=== PATIENT | female | born 1955 | race Two or more races ===

== ENCOUNTER 2024-12-25 14:17 | Inpatient (IN) | payer OTHER ==
[~2024-12-25] VITALS: Ht 149.9 cm; Wt 84.0 kg
--- NOTE | 2024-12-25 14:46 | ED.PDOC ---
HPI Comments 69 y/o F, with PMHx of anemia and HTN, brought in by daughter presents to the ED for CC of hypotension. Per patient's daughter, patient has been experiencing low blood pressure readings with associated symptoms of disorientation, confusion x2days. Patient relays, that she drove up to her daughter's place from [place] today (12/25/24) however, she is unable to recall the drive. Patient comments on, having had heart problems for over a year; patient has appointment with disease control inspector on Monday (12/31/24). Patient denies fever, chills, nausea, vomiting, or diarrhea. No other symptoms or modifying factors present at this time. Time Seen by MD: 14:38 Reviewed Notes: Nurses Notes, Medications, Allergies Allergies: Coded Allergies: Cefaclor (Verified Allergy, Unknown, 12/25/24) Information Source: Patient, Relative (Child) Mode of Arrival: Ambulatory Severity: Moderate Timing: Days Duration: Since onset Prehospital treatment: None Onset: At Rest Cardiac Risk Factors: HTN PE Risk Factors: None History of: None Modifying Factors: Nothing Associated Signs and Symptoms: SOB Past Medical History PAST MEDICAL HISTORY: Anemia, HTN Surgical History: Denies all surgeries QUICK TECHNICIAN History: Denies all QUICK TECHNICIAN Hx Family History Family History: Unknown Social History Smoker: Non-Smoker Alcohol: Occasionally Drugs: Denies Drug Use Lives In: Home Constitutional: denies: chills, diaphoresis, fatigue, fever, malaise, sweats, weakness, others EENTM: denies: blurred vision, double vision, ear bleeding, ear discharge, ear drainage, ear pain, ear ringing, eye pain, eye redness, hearing loss, mouth pain, mouth swelling, nasal discharge, nose bleeding, nose congestion, nose pain, photophobia, tearing, throat pain, throat swelling, voice changes, others Respiratory: denies: cough, hemoptysis, orthopnea, SOB at rest, shortness of breath, SOB with excertion, stridor, wheezing, others Cardiovascular: reports: others (HYPOTENSION); denies: chest pain, dizzy spells, diaphoresis, Dyspnea on exertion, edema, irregular heart beat, left arm pain, lightheadedness, palpitations, PND, syncope Gastrointestinal: denies: abdomen distended, abdominal pain, blood streaked bowels, constipated, diarrhea, dysphagia, difficulty swallowing, hematemesis, melena, nausea, poor appetite, poor fluid intake, rectal bleeding, rectal pain, vomiting, others Genitourinary: reports: incontinence; denies: abnormal vagina bleeding, burning, dyspareunia, dysuria, flank pain, frequency, hematuria, pain, , vagina discharge, urgency, others Neurological: reports: others (CONFUSION); denies: dizziness, fainting, headache, left sided numbness, left sided weakness, numbness, paresthesia, pre-e xisting deficit, right sided numbness, right sided weakness, seizure, speech problems, tingling, tremors, weakness Musculoskeletal: denies: back pain, gout, joint pain, joint swelling, muscle pain, muscle stiffness, neck pain, others Integumetry: denies: bruises, change in color, change in hair/nails, dryness, laceration, lesions, lumps, rash, wounds, others Allergic/Immunocompromised: denies: Difficulty Healing, Frequent Infections, Hives, Itching, others Hematologic/Lymphatic: denies: anemia, blood clots, easy bleeding, easy bruising, swollen glands, others Endocrine: denies: excessive hunger, excessive sweating, excessive thirst, excessive urination, flushing, intolerance to cold, intolerance to heat, unexplained weight gain, unexplained weight loss, others Psychiatric: denies: anxiety, bipolar disorder, depression, hopeless, panic disorder, schizophrenia, sleepless, suicidal, others All Other Systems: Reviewed and Negative Physical Exam General Appearance: Moderate Distress HEENT: Pale Conjuntivae (L), Pale Conjuntivae (R), Pharynx Normal, TMs Normal Neck: Full Range of Motion, Non-Tender, Normal, Normal Inspection Respiratory: Chest Non-Tender, Lungs Clear, No Accessory Muscle Use, No Respiratory Distress, Normal Breath Sounds Cardiovascular: No Edema, No JVD, No Murmur, No Gallop, Normal Peripheral Pulses, Regular Rate/Rhythm Breast Exam: Deferred Gastrointestinal: No Organomegaly, Non Tender, No Pulsatile Mass, Normal Bowel Sounds, Soft Genitalia: Deferred Pelvic: Deferred Rectal: Deferred Extremities: No calf tenderness, Normal capillary refill, Normal inspection, Normal range of motion, Non-tender, No pedal edema Musculoskeletal : Apperance: Normal Neurologic: licensed audiologist II-XII nml as Tested, Motor Weakness, No Sensory Deficits, Other (The patient was somewhat confused) Cerebellar Function: Unable to Test Reflexes: Normal Skin: Dry, Normal Color, Warm Lymphatic: No Adenopathy EKG EKG : [place]: Normal Cardiac Rhythm: NSR Block: None Hypertrophy: LAE ST: Normal Was a procedure done? Was a procedure done?: No CP Differential Dx Differential Diagnosis: Angina, HI, Pulmonary Embolus Differential Diagnosis: CHF, Other (CVA) Differential Diagnosis: Pericarditis X-Ray, Labs, Meds, VS Vital Signs Date Time Temp Pulse Resp B/P (MAP) Pulse Ox O2 Delivery O2 Flow Rate FiO2 12/25/24 18:13 98.2 86 18 128/48 (74) 96 98.2 12/25/24 14:48 97.9 85 18 100/61 (74) 95 97.9 12/25/24 14:38 80 Lab Test 12/25/24 14:55 12/25/24 14:34 Range/Units White Blood Count 7.9 4.4-10.8 10^3/uL Red Blood Count 4.31 4.0-5.20 10^6/uL Hemoglobin 13.8 12.2-16.2 g/dL Hematocrit 42.0 36.0-46.0 % Mean Corpuscular Volume 97.5 80.0-100.0 fL Mean Corpuscular Hemoglobin 32.0 28.0-32.0 pg Mean Corpuscular Hemoglobin Concent 32.8 32.0-36.0 g/dL Red Cell Distribution Width 13.4 11.8-14.3 % Platelet Count 314 140-450 10^3/uL Mean Platelet Volume 7.6 6.9-10.8 fL Neutrophils (%) (Auto) 50.3 37.0-80.0 % Lymphocytes (%) (Auto) 35.0 10.0-50.0 % Monocytes (%) (Auto) 5.5 0.0-12.0 % Eosinophils (%) (Auto) 8.6 H 0.0-7.0 % Basophils (%) (Auto) 0.6 0.0-2.0 % Neutrophils # (Auto) 4.0 1.6-8.6 10 ^3/uL Lymphocytes # (Auto) 2.8 0.4-5.4 10 ^3/uL Monocytes # (Auto) 0.4 0-1.3 10 ^3/uL Eosinophils # (Auto) 0.7 0-0.8 10 ^3/uL Basophils # (Auto) 0 0-0.2 10 ^3/uL Nucleated Red Blood Cells 0.0 % Sodium Level 138 136-145 mmol/L Potassium Level 4.3 3.5-5.1 mmol/L Chloride Level 106 98-107 mmol/L Carbon Dioxide Level 23 20-31 mmol/L Anion Gap 9 5-15 Blood Urea Nitrogen 10 9-23 mg/dL Creatinine 0.70 0.550-1.02 mg/dL Glomerular Filtration Rate Calc 95 >90 mL/min BUN/Creatinine Ratio 14.3 10.0-20.0 Serum Glucose 96 74-106 mg/dL Lactic Acid Level 1.3 0.4-2.0 mmol/L Calcium Level 9.1 8.7-10.4 mg/dL Troponin I High Sensitivity < 3 L </=34 ng/L Plasma/Serum Blood Alcohol < 3.0 <10 mg/dL POC Glucose 88 70-106 mg/dl CXR: IMPRESSION: 1. Atelectasis or scarring in the left base no prior studies for comparison. The patient's CBC and chemistry panel is within normal limits The troponin level is negative The alcohol level is within normal limits. The CAT scan of the head is negative At this time, the patient was being admitted to the hospitalist The patient remained somewhat confused Images Reviewed?: Images reviewed and evaluated by me Time of 1ST Reevaluation: 15:08 Reevaluation 1ST: Unchanged Patient Education/Counseling: Diagnosis, Treatment, Prognosis Family Education/Counseling: Diagnosis, Treatment, Prognosis Departure 1 Departure Time of Disposition: 18:31 Impression: Primary Impression: Confusion Disposition: 09 ADMITTED INPATIENT Admit to: [facility] Condition: Fair Critical Care Note Critical Care Time?: Yes (45 min-critical care time only) Stability Stability form required: Yes Unstable for transfer: Telemetry monitoring (Telemetry monitoring required), ED Physician Assesment (Clinical assesment) Heart Score Heart Score: Heart Score Response (Comments) Value History N/A 0 EKG N/A 0 Age N/A 0 Risk Factors N/A 0 Troponin N/A 0 Total 0 I personally scribed for DIMITRI SCHWARTZ MD ([email or web address]) on 12/25/24 at 14:46. Electronically submitted by Florecita Araya ([email or web address]). I personally scribed for DIMITRI SCHWARTZ MD ([email or web address]) on 12/25/24 at 16:04. Electronically submitted by Florecita Araya ([email or web address]). DIMITRI SCHWARTZ MD Dec 25, 2024 14:46
[2024-12-25 15:10] LABS: Basophils # (auto) 0 10 ^3/uL (0-0.2); Basophils % (auto) 0.6 % (0.0-2.0); Eosinophils # (auto) 0.7 10 ^3/uL (0-0.8); Eosinophils % (auto) 8.6 % (0.0-7.0); Hemoglobin 13.8 g/dL (12.2-16.2); Lymphocytes # (auto) 2.8 10 ^3/uL (0.4-5.4); Mean Corpuscular Hgb Conc. 32.8 g/dL (32.0-36.0); Mean Corpuscular Volume 97.5 fL (80.0-100.0); Monocytes # (auto) 0.4 10 ^3/uL (0-1.3); Monocytes % (auto) 5.5 % (0.0-12.0); Neutrophils % (auto) 50.3 % (37.0-80.0); Platelet Count (auto) 314 10^3/uL (140-450); Red Blood Cells 4.31 10^6/uL (4.0-5.20); Red Cell Distribution Width 13.4 % (11.8-14.3); White Blood Cell 7.9 10^3/uL (4.4-10.8)
[2024-12-25 15:18] LABS: Chloride 106 mmol/L (98-107); Potassium 4.3 mmol/L (3.5-5.1); Sodium 138 mmol/L (136-145)
[2024-12-25 15:19] LABS: Anion Gap 9 (5-15); Carbon Dioxide 23 mmol/L (20-31)
[2024-12-25 15:20] LABS: Calcium 9.1 mg/dL (8.7-10.4)
[2024-12-25 15:24] LABS: Glucose 96 mg/dL (74-106)
[2024-12-25 15:25] LABS: BUN/Creatinine Ratio 14.3 (10.0-20.0); Blood Urea Nitrogen 10 mg/dL (9-23)
[2024-12-25 15:28] LABS: Blood Alcohol < 3.0 mg/dL (<10)
--- NOTE | 2024-12-25 15:41 | DVH ---
XY CHEST TWO VIEWS ROUTINE CLINICAL HISTORY: aloc COMPARISON: None TECHNIQUE: Frontal and lateral view of the chest was obtained FINDINGS: Lines and Tubes: None Lungs: Atelectasis or scarring in the left base Pleura: No effusion. No pneumothorax. Cardiomediastinal contours: Unremarkable Bones: No acute osseous abnormality. IMPRESSION: 1. Atelectasis or scarring in the left base no prior studies for comparison.
--- NOTE | 2024-12-25 16:48 | DVH ---
EXAM: CT HEAD WITHOUT CONTRAST; DATE: 12/25/2024 02:51 PM HISTORY: aloc COMPARISON: None TECHNIQUE: Axial images were obtained and reformatted in coronal and sagittal planes. All CT scans at this medical facility are performed using dose modulation techniques as appropriate t o a performed exam including the following: Automated exposure control was utilized; adjustment of th e MA and/or KV according to patient size; and use of iterative reconstruction technique. CT Dose: CTDI volume is 56.14 mGy. Dose-length product is 994.11 mGy*cm FINDINGS: Supratentorial Region: No evidence for large acute territorial ischemia. No intracranial hemorrhage is noted. Posterior Fossa: No acute abnormality. Brainstem: Unremarkable. Sellar/Suprasellar Region: Unremarkable. Ventricles, Cisterns, Sulci: Age-appropriate. Orbits: Unremarkable. Paranasal Sinuses: Unremarkable. Mastoid Air Cells: Unremarkable. Vasculature: Unremarkable. Bones/Soft Tissues: No acute abnormality. Other: None. IMPRESSION: 1. No acute intracranial process.
[2024-12-25] MEDS: SODIUM CHLORIDE 0.9% 1,000 ML IV ONE (18:41)
[2024-12-25] MEDS ORDERED: DOCUSATE SOD 100 MG CAP PO PRN (23:15)
[2024-12-25] MEDS ORDERED: ONDANSETRON HCL 4 MG/2 ML VIAL IV PRN (23:15)
[2024-12-25] MEDS ORDERED: ACETAMINOPHEN 325 MG TAB PO PRN (23:15)
[2024-12-25] MEDS ORDERED: MORPHINE SULFATE INJ 2 MG/ml SYRG IV PRN (23:15)
--- NOTE | 2024-12-25 23:19 | DVHHPRES ---
History of Present Illness Resident Creating Document: WINNIE KWOK RESIDENT History of Present Illness Trena Sanchez who is a 69-year-old female patient who presents to the ED brought by daughter due to episode of dementia, lightheadedness, right side facial drooping and slurred speech which occurred while driving from her house to the daughter's house. Review of systems could not be obtained during episode due to her clinical status (she had amnesia). Past medical history: Prediabetes, history of congestive heart failure (per patient she has left ventricular ejection fraction of 28%) due to non affiliated arrhythmia she was planning to go to her natural resource officer and [facility] (pending for this week). Previous history of diverticulitis Surgical history: Denies Family history: Father had heart disease, grandmother had colon cancer, and mother had fallopian tube cancer Social history: Lives in [place] ([place]), was visiting daughter in [place]. Denies current tobacco, alcohol and other drug abuse (she does drink one glass of wine/Sabi everyday (never more than two. Does consume CBD to go to sleep Allergies: Hay fever Home medication: Spiriva, Breyo, lisinopril Patient seen and examined at bedside. Currently has no new complaints. We will admit to workup and rule out CVA. Past Medical History Per HPI Past Surgical History Per HPI Family History Per HPI Past Social History Per HPI Review of Systems Review of Systems Per HPI Allergies: Coded Allergies: Cefaclor (Verified Allergy, Unknown, 12/25/24) Exam Vital Signs Vital Signs Date Time Temp Pulse Resp B/P (MAP) Pulse Ox O2 Delivery O2 Flow Rate FiO2 12/25/24 19:44 70 18 95 Room Air 12/25/24 19:44 97.9 126/79 (95) 97.9 Exam Patient lying in bed, in no acute distress General: Lucid, afebrile, mucosae are moist Cardiovascular: Normal S1 and S2. No murmurs, gallops or rubs Respiratory: Normal ventilation mechanics. Clear lung sounds on auscultation Abdomen: Soft, nontender, no organomegaly, normal bowel sounds MSK/skin: Mobilizes 4 limbs. Skin is dry and warm Neurological: Oriented in 3 spheres. No motor no sensitive deficits. Pupils are isocoric and reactive Labs/Xrays Labs Test 12/25/24 14:55 12/25/24 14:34 Range/Units White Blood Count 7.9 4.4-10.8 10^3/uL Red Blood Count 4.31 4.0-5.20 10^6/uL Hemoglobin 13.8 12.2-16.2 g/dL Hematocrit 42.0 36.0-46.0 % Mean Corpuscular Volume 97.5 80.0-100.0 fL Mean Corpuscular Hemoglobin 32.0 28.0-32.0 pg Mean Corpuscular Hemoglobin Concent 32.8 32.0-36.0 g/dL Red Cell Distribution Width 13.4 11.8-14.3 % Platelet Count 314 140-450 10^3/uL Mean Platelet Volume 7.6 6.9-10.8 fL Neutrophils (%) (Auto) 50.3 37.0-80.0 % Lymphocytes (%) (Auto) 35.0 10.0-50.0 % Monocytes (%) (Auto) 5.5 0.0-12.0 % Eosinophils (%) (Auto) 8.6 H 0.0-7.0 % Basophils (%) (Auto) 0.6 0.0-2.0 % Neutrophils # (Auto) 4.0 1.6-8.6 10 ^3/uL Lymphocytes # (Auto) 2.8 0.4-5.4 10 ^3/uL Monocytes # (Auto) 0.4 0-1.3 10 ^3/uL Eosinophils # (Auto) 0.7 0-0.8 10 ^3/uL Basophils # (Auto) 0 0-0.2 10 ^3/uL Nucleated Red Blood Cells 0.0 % Sodium Level 138 136-145 mmol/L Potassium Level 4.3 3.5-5.1 mmol/L Chloride Level 106 98-107 mmol/L Carbon Dioxide Level 23 20-31 mmol/L Anion Gap 9 5-15 Blood Urea Nitrogen 10 9-23 mg/dL Creatinine 0.70 0.550-1.02 mg/dL Glomerular Filtration Rate Calc 95 >90 mL/min BUN/Creatinine Ratio 14.3 10.0-20.0 Serum Glucose 96 74-106 mg/dL Lactic Acid Level 1.3 0.4-2.0 mmol/L Calcium Level 9.1 8.7-10.4 mg/dL Troponin I High Sensitivity < 3 L </=34 ng/L Plasma/Serum Blood Alcohol < 3.0 <10 mg/dL POC Glucose 88 70-106 mg/dl Assessment/Plan Assessment/Plan Assessment: Rule out CVA History of congestive heart failure not exacerbated (per patient LVEF is 28%) Non-Affiliated arrhythmia Asthma Plan: Completed head CT which showed no acute intracranial pathology. Have ordered MRI to rule out CVA Ordered Neurological consult Ordered workup for CVA (echocardiogram, carotid duplex) EKG shows normal sinus rhythm with regular progression of precordial R's, no significant ST alteration Goals of care discussed with patient for over18 minutes: Full code status Discussed plan with Dr. Portillo, patient and nurses: Patient was admitted to telemetry, she has history of non affiliated arrhythmia with no blood thinners (EKG showed normal sinus rhythm), awaiting CVA workup, head CT is within normal limits, pending MRI and Neurology consult. Plan discussed with: Patient, Other (Nurses) My Orders Orders - WINNIE KWOK Procedure Category Date Status Time Brain Head Wo Contrast MRI 12/25/24 Logged 23:15 Admit ADMIT 12/25/24 Verified 23:15 Code Status CODE 12/25/24 Verified 23:15 Vital Signs LESLY 12/25/24 Verified 23:15 Review Orders With LESLY 12/25/24 Verified Adm. 23:15 Consistent DIET 12/26/24 Verified Carb(Ccho)Diabetes Breakfast Docusate Sodium PHA 12/25/24 Verified Capsule (Colace 23:15 Date of Service: Dec 25, 2024 Billing Provider: CHER PORTILLO MD Common Visit Codes: 90249-XISACVN INP/OBS CARE (HIGH) Secondary Visit Codes: 20357-IAGTJGXR CARE PLAN 30 MINUTES WINNIE KWOK Dec 25, 2024 23:18 CHER PORTILLO MD Dec 26, 2024 19:02
[2024-12-25 23:48] LABS: Magnesium 2.2 mg/dL (1.6-2.6)
[2024-12-25 23:50] LABS: Phosphorus 3.7 mg/dL (2.4-5.1)
[2024-12-26] VITALS (14 sets, daily range): BP systolic 101–140; BP diastolic 52–88; PULSE 71–86; RESP 17–20; TEMP 97.3–97.6; O2SAT 91–100
[2024-12-26] MEDS: PANTOPRAZOLE 40 MG TAB PO SCH (06:17)
[2024-12-26] MEDS: ATORVASTATIN 20 MG TAB PO ONE (06:18)
[2024-12-26] MEDS: IPRATROPIUM BROM 0.5 MG/2.5ML INH SOL NEB SCH (07:21)
[2024-12-26] MEDS: LEVALBUTEROL HCL 1.25 MG/3 ML NEB NEB SCH (07:21)
[2024-12-26 08:27] LABS: Amphetamine Screen, Urine Neg (NEGATIVE); Barbiturate Scree,Urine Neg (NEGATIVE); Benzodiazephine Screen, Urine Neg (NEGATIVE); Cannabinoid Screen, Urine Pos (NEGATIVE); Cocaine Screen, Urine Neg (NEGATIVE); Opiate Scree,Urine Neg (NEGATIVE); Phencyclidine Screen, Urine Neg (NEGATIVE)
[2024-12-26 08:47] LABS: Urine Bacteria FEW /hpf (None Seen); Urine Blood Negative /uL (Negative); Urine Clarity Turbid (Clear); Urine Color Colorless (Yellow); Urine Protein, UAD Negative (Negative); Urine Specific Gravity 1.008 (1.001-1.035); Urine Squamous Epithelial Cell FEW /hpf (<5); Urine Urobilinogen Normal (Negative); Urine WBC 90 /HPF (0-5); Urine pH 5.5 (5.0-9.0)
[2024-12-26 08:56] LABS: Basophils # (auto) 0.1 10 ^3/uL (0-0.2); Basophils % (auto) 0.7 % (0.0-2.0); Eosinophils # (auto) 0.6 10 ^3/uL (0-0.8); Eosinophils % (auto) 7.4 % (0.0-7.0); Hematocrit 45.1 % (36.0-46.0); Hemoglobin 14.6 g/dL (12.2-16.2); Lymphocytes # (auto) 2.6 10 ^3/uL (0.4-5.4); Lymphocytes % (auto) 31.2 % (10.0-50.0); Mean Corpuscular Hemoglobin 31.4 pg (28.0-32.0); Mean Corpuscular Hgb Conc. 32.3 g/dL (32.0-36.0); Mean Corpuscular Volume 97.4 fL (80.0-100.0); Monocytes # (auto) 0.4 10 ^3/uL (0-1.3); Neutrophils # (auto) 4.7 10 ^3/uL (1.6-8.6); Neutrophils % (auto) 55.7 % (37.0-80.0); Nucleated Red Blood Cells % 0.1 %; Platelet Count (auto) 313 10^3/uL (140-450); Red Blood Cells 4.64 10^6/uL (4.0-5.20); Red Cell Distribution Width 13.3 % (11.8-14.3); White Blood Cell 8.4 10^3/uL (4.4-10.8)
[2024-12-26 08:58] LABS: Chloride 106 mmol/L (98-107); Potassium 4.4 mmol/L (3.5-5.1); Sodium 140 mmol/L (136-145)
[2024-12-26 08:59] LABS: Anion Gap 7 (5-15); Calcium 9.9 mg/dL (8.7-10.4); Carbon Dioxide 27 mmol/L (20-31)
[2024-12-26 09:04] LABS: BUN/Creatinine Ratio 11.4 (10.0-20.0); Glucose 97 mg/dL (74-106)
[2024-12-26 09:34] LABS: Blood Urea Nitrogen 8 mg/dL (9-23)
--- NOTE | 2024-12-26 09:56 | DVH ---
Carotid Duplex Date: 12/26/2024 08:41 AM Clinical History: CVA work up Comparison: None Technique: Duplex Doppler evaluation of the extracranial carotid and vertebral arteries including col or Doppler and spectral/pulsed waveform analysis was performed. Findings: RIGHT SIDE: The peak systolic velocities are 66 cm/s in the distal CCA and 40 cm/s in the proximal ICA.The ICA/CC A ratio is 0.6. The external carotid artery is patent with peak systolic velocity of 34 cm/s proximally. There is appropriate antegrade flow in the right vertebral artery. LEFT SIDE: The peak systolic velocities are 54 cm/s in the distal CCA and 81cm/s in the proximal ICA. The ICA/ CCA ratio is 1.5. The external carotid artery is patent with peak systolic velocity of 34 cm/s proximally. There is appropriate antegrade flow in the left vertebral artery. IMPRESSION: No hemodynamically significant stenosis noted in the right carotid system. No hemodynamically significant stenosis noted in the left carotid system. Reference: Radiology 2003; 229:340-346
[2024-12-26] MEDS: ASPirin 81 mg TAB PO SCH (10:04)
[2024-12-26] MEDS: METOPROLOL SUCCINATE XL 50 MG TAB PO SCH (10:05)
[2024-12-26] MEDS: VENLAFAXINE HCL 37.5MG TABLET PO SCH (10:05)
[2024-12-26] MEDS: ENOXAPARIN SOD 40 MG/0.4 ML SYRINGE SC SCH (10:06)
--- NOTE | 2024-12-26 10:15 | ECG ---
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
[2024-12-26] MEDS: LISINOPRIL 5 MG TAB PO SCH (11:46)
[2024-12-26] MEDS: FUROSEMIDE 20 MG/2 ML VIAL IV ONE (11:47)
--- NOTE | 2024-12-26 13:33 | DVHSR ---
APPROVED REPORT EXAM: Two-dimensional and M-mode echocardiogram with Doppler and color Doppler. Blood Pressure: 140/69 mmHg INDICATION HFrEF, CVA workup RISK FACTORS Height: 50, Weight: 182 DIMENSIONS LVDd4.9 (3.8-5.7cm)LA (2D)4.3 (1.9-4.0cm)Aortic Root3.3 (2.0-3.7cm) LVDs3.6 (2.5-4.0cm)LA (MM) (1.9-4.0cm)Aortic Cusp Exc1.9 (1.5-2.0cm) EF (%) 50.0 (55-70%)Rt. Atrium3.8 (1.9-4.0cm)Asc. Aorta cm IVSd1.1 (0.7-1.1cm)RV (D) (1.8-2.4cm) PWd1.1 (0.7-1.1cm) Mitral Valve MitralMitral Stenosis E wave0.49m/sMV Mean GR.mmHg A wave0.85m/sMV Peak GR.mmHg E/A ratio0.62D MVAcm2 DECEL [id number] 1/2 [id number] IVRTmsDop MVA2.49cm2 Aortic Valve Aortic ValveAortic Stenosis V10.70m/Stephon Mean GR.4mmHg V21.24m/Stephon Peak GR.6mmHg LVOT Diameter2.2 (1.8-2.4cm)Doppler AVA2.14cm2 Pulmonic Valve V21.16m/s Tricuspid Valve TR Velocity2.14m/s [id number] Other Information Technically limited study due to body habitus. Conclusion lvef 60% by viusal estimate normal rv function no severe valve abnormaliteis noted left atrium enlarged
--- NOTE | 2024-12-26 15:55 | DVHPNRES ---
Progress Note Date Seen: Dec 26, 2024 Resident Creating Document: DEANGELO DEAL RESIDENT Has the PT tested + for MRSA If YES, has PT been informed?: No Medical Necessity Reason Pt with a Central, PICC or Fol: No Medical Necessity Reason History of Present Illness Trena Sanchez who is a 69-year-old female patient who presents to the ED brought by daughter due to episode of dementia, lightheadedness, right side facial drooping and slurred speech which occurred while driving from her house to the daughter's house. Review of systems could not be obtained during episode due to her clinical status (she had amnesia). Past medical history: Prediabetes, history of congestive heart failure (per patient she has left ventricular ejection fraction of 28%) due to non affiliated arrhythmia she was planning to go to her wool grader and [facility] (pending for this week). Previous history of diverticulitis Surgical history: Denies Family history: Father had heart disease, grandmother had colon cancer, and mother had fallopian tube cancer Social history: Lives in [place] ([place]), was visiting daughter in [place]. Denies current tobacco, alcohol and other drug abuse (she does drink one glass of wine/Sabi everyday (never more than two. Does consume CBD to go to sleep Allergies: Hay fever Home medication: Spiriva, Breyo, lisinopril PN: 12/26/2024 Patient is seen and evaluated today in [facility]. For H&P patient tells me that yesterday around 890 8:00 a.m. in the morning she had a right her daughter's house. Her daughter noticed the her mouth pills deviated to the right side with Aung eyelid and she just did not look well. Therefore her daughter recommended brought her to the ED for evaluation. Patient also mentioned the was driving she remembers she was in and out of diabetes she did not remember exactly some of the places if she had passed them or not but she eventually admitted to her daughter's house. Patient denied ever having this experienced before. She also mentioned she had an echocardiogram done some where she was told she has been 828% ejection fraction. Chest- ray: Atelectasis or scarring in the left base no prior studies for comparison. Carotid duplexa; No hemodynamically significant stenosis noted in the right carotid system. No hemodynamically significant stenosis noted in the left carotid system. Subjective Review of Systems Constitutional: Denies fever no chills no feeling of malaise HEENT: Denies headache, ear pain, ear discharges, conjunctivitis, nasal discharge throat pain Cardiovascular: Denies chest pain, palpitation, orthopnea, PND, or pedal edema Respiratory: Denies shortness of breath, cough cough, sputum production, hemoptysis, GI: Denies abdominal pain, nausea, vomiting, diarrhea, hematemesis, hematochezia, : Denies frequency, urgency, hematuria, Endocrine: Denies unintentional weight gain or weight loss, feeling of hot flashes, Rubens: Denies easy bruising, bleeding disorders, epistaxis Musculoskeletal: Denies joint pains, muscle aches Psych: No evidence of depression, eleni, suicidal ideation Objective vital signs Vital Sign Date Time Temp Pulse Resp B/P (MAP) Pulse Ox O2 Delivery O2 Flow Rate FiO2 12/26/24 13:10 97.3 82 17 113/56 (75) 93 97.3 12/26/24 10:00 Room Air 12/26/24 10:00 0 21 medications Current Medications Medications Dose Ordered Sig/Radha Route Start Time Stop Time Status Last Admin Dose Admin Docusate Sodium 100 mg BIDPRN PRN PO 12/25/24 23:15 Acetaminophen 650 mg Q6HP PRN PO 12/25/24 23:15 Ondansetron HCl 4 mg Q4HP PRN IV 12/25/24 23:15 Morphine Sulfate 2 mg Q4HPRN PRN IV 12/25/24 23:15 Enoxaparin Sodium 40 mg DAILY SC 12/26/24 10:00 12/26/24 10:06 40 MG Ipratropium [place] 0.5 mg Q6HWA [facility] 12/26/24 06:00 12/26/24 11:19 0.5 MG Levalbuterol HCl 0.625 mg Q6HR [facility] 12/26/24 06:00 12/26/24 11:19 0.625 MG Atorvastatin Calcium 20 mg HS PO 12/26/24 22:00 Venlafaxine HCl 37.5 mg DAILY PO 12/26/24 10:00 12/26/24 10:05 37.5 MG Montelukast Sodium 10 mg HS PO 12/26/24 22:00 Pantoprazole Sodium 40 mg DAILY@0600 PO 12/26/24 06:00 12/26/24 06:17 40 MG Lisinopril 10 mg BID PO 12/26/24 10:00 12/26/24 11:46 10 MG Metoprolol Succinate 12.5 mg DAILY PO 12/26/24 10:00 12/26/24 10:05 12.5 MG Aspirin 81 mg DAILY PO 12/26/24 10:00 12/26/24 10:04 81 MG Examination General Appearance: Alert, Oriented X3, Cooperative, No acute distress HEENT: Atraumatic, PERRLA, EOMI, Mucous membrane moist/pink Respiratory: Clear to auscultation, Normal air movement Cardiovascular: Regular rate, Normal S1, Normal S2, No murmurs, no chest wall tenderness Abdominal: NO distention, no tenderness, bowel sounds present, no scars noted Extremities: No clubbing, No cyanosis, No edema, Normal pulses, No tenderness/swelling Skin: No rashes, No breakdown, No significant lesion Neuro: Normal gait, Normal speech, Strength at 5/5 X4 ext, Normal tone, Sensation intact, Cranial nerves 3-12 NL, Reflexes 2+ Psych/Mental Status: Mental status NL, Mood NL MMSE Orientation: 11/13 ( [facility]) Resgistration: 01/13 Attention and calculation 01/13 recall : 01/13 language 01/13 Copy: 01/13 laboratory and microbiology Laboratory Tests 12/26/24 08:07 Test 12/26/24 08:07 Range/Units Serum Glucose 97 74-106 mg/dL Microbiology Date/Time Source Procedure Growth Status 12/25/24 14:54 Blood Blood Culture - Preliminary NO GROWTH AFTER 24 HOURS OF INCUBATION. Resulted Problem List/Assessment/Plan Problem List/Assessment/Plan Assessment: Likely TIA CT head: No acute intracranial process. Carotid duplex: No hemodynamically significant stenosis noted in the right carotid system.No hemodynamically significant stenosis noted in the left carotid system. ? Early Dementia --> Highly educated, RETIRED --> MMSE: > 25/30 ?? New onset Chf CHF according to patient ( Echo: 28.%) -->pending visit to [facility]man the wool grader -->Echo here reveals 60% --> Cardiology consult for evaluation for ischemic work up Non-Affiliated arrhythmia Asthma Asymptomatic pyuria Obesity grade II --> BMI: 36.8 Goal of care discussed more than 20 minutes: Full code Case and plan discussed with Dr. Abraham Plan discussed with: Patient My Orders My Orders Orders - DEANGELO DEAL Procedure Category Date Status Time * Cardiology Consult CONS 12/26/24 Transmitted 15:53 Date of Service: Dec 26, 2024 Billing Provider: BEL ABRAHAM MD Common Visit Codes: [id number] INP/OBS CARE(HIGH) DEANGELO DEAL Dec 26, 2024 15:55 BEL ABRAHAM MD Dec 27, 2024 22:09
--- NOTE | 2024-12-26 16:44 | DVHINCON2 ---
Date Seen: Dec 26, 2024 Referring Physician MD Fernando resident Reason for Consultation New onset CHF, ischemic workup History of Present Illness This is a 69-year-old female patient who presents to the emergency room with chief complaint of confusion, right-sided facial drooping, and slurred speech. The patient admits that she was having issues with remembering the drive to her daughter's house. The patient reports her daughter became concerned and wanted her to come to the emergency room to be evaluated for a possible stroke. Cardiology has been consulted at this time for patient's history of congestive heart failure. Initial twelve lead electrocardiogram reveals normal sinus rhythm without any significant ST segment changes. Initial troponin level was negative. The patient denies any cardiac symptoms at time of assessment. Significant past medical history includes congestive heart failure, hypertension, asthma, PTSD, and depression. The patient states that she was told that she has an EF as low as 28%. 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 Past Medical History Past medical history reviewed. No other significant than mentioned above. Past Surgical History Denies Family History: Patient reports no known family medical history. Family History Family history reviewed. Social History Patient is states that she drinks approximately two glasses of wine every night Admits to occasional CBD use Denies any tobacco use Allergies: Coded Allergies: Cefaclor (Verified Allergy, Unknown, 12/25/24) Home Meds Home medications reviewed. Current Medications Current Medications Medications (Trade) Dose Ordered Sig/Radha Route PRN Reason Start Time Stop Time Status Last Admin Docusate Sodium (Colace Capsule) 100 mg BIDPRN PRN PO FOR CONSTIPATION 12/25/24 23:15 Acetaminophen (Tylenol Tablet) 650 mg Q6HP PRN PO PAIN SCALE 1-3 OR TEMP>100.4 12/25/24 23:15 Ondansetron HCl (Zofran) 4 mg Q4HP PRN IV NAUSEA / VOMITING 12/25/24 23:15 Morphine Sulfate 2 mg Q4HPRN PRN IV SEVERE PAIN (7-10 PAIN SCALE) 12/25/24 23:15 Enoxaparin Sodium (Lovenox) 40 mg DAILY SC 12/26/24 10:00 12/26/24 10:06 Ipratropium Jones (Atrovent Medneb) 0.5 mg Q6HWA NEB 12/26/24 06:00 12/26/24 11:19 Levalbuterol HCl (Xopenex Medneb) 0.625 mg Q6HR NEB 12/26/24 06:00 12/26/24 11:19 Atorvastatin Calcium (Lipitor) 20 mg HS PO 12/26/24 22:00 Venlafaxine HCl (Effexor) 37.5 mg DAILY PO 12/26/24 10:00 12/26/24 10:05 Montelukast Sodium (Singulair Tablet) 10 mg HS PO 12/26/24 22:00 Pantoprazole Sodium (Protonix Tablet) 40 mg DAILY@0600 PO 12/26/24 06:00 12/26/24 06:17 Lisinopril (Zestril Tablet) 10 mg BID PO 12/26/24 10:00 12/26/24 11:46 Metoprolol Succinate (Toprol Xl) 12.5 mg DAILY PO 12/26/24 10:00 12/26/24 10:05 Aspirin 81 mg DAILY PO 12/26/24 10:00 12/26/24 10:04 Review of Systems Constitutional: No symptom reported Ears, Nose, & Throat: No symptom reported Eyes: No symptom reported Neurological: Right-sided facial droop, confusion, slurred speech Pulmonary/Respiratory: No symptoms reported Cardiovascular: No symptom reported Gastrointestinal: No symptom reported Genitourinary: No symptom reported Musculoskeletal: No symptom reported Skin: No symptom reported Psychiatric: No symptom reported Endocrine: No symptom reported Hematologic/Lymphatic: No symptom reported Vital Signs Vital Signs Date Time Temp Pulse Resp B/P (MAP) Pulse Ox O2 Delivery O2 Flow Rate FiO2 12/26/24 13:10 97.3 82 17 113/56 (75) 93 97.3 12/26/24 10:00 Room Air 12/26/24 10:00 0 21 Physical Exam General Appearance: Cooperative. Well-developed. Well-nourished. No acute distress. Pulmonary/Respiratory: Clear, bilateral breaths sounds. Cardiovascular/Chest: Regular rate and rhythm. Peripheral Pulses: 2+ Radial (R). 2+ Radial (L). 2+ Pedal (R). 2+ Pedal (L) Abdominal Exam: Normal bowel sounds. Ankle Exam: Negative ankle edema Lower extremities: Negative lower extremity edema Neuro/Mental Status: A/OX4, coherent. Thoughts/Psych: Normal thought pattern. Appropriate mood and affect. Good judgment and insight. Appearance: No acute distress. Skin Exam: Normal inspection. Normal color. Warm and dry. Labs/Diagnostic Data Labs Test 12/26/24 08:07 12/26/24 07:26 12/25/24 14:55 12/25/24 14:34 Range/Units White Blood Count 8.4 4.4-10.8 10^3/uL Red Blood Count 4.64 4.0-5.20 10^6/uL Hemoglobin 14.6 12.2-16.2 g/dL Hematocrit 45.1 36.0-46.0 % Mean Corpuscular Volume 97.4 80.0-100.0 fL Mean Corpuscular Hemoglobin 31.4 28.0-32.0 pg Mean Corpuscular Hemoglobin Concent 32.3 32.0-36.0 g/dL Red Cell Distribution Width 13.3 11.8-14.3 % Platelet Count 313 140-450 10^3/uL Mean Platelet Volume 7.7 6.9-10.8 fL Neutrophils (%) (Auto) 55.7 37.0-80.0 % Lymphocytes (%) (Auto) 31.2 10.0-50.0 % Monocytes (%) (Auto) 5.0 0.0-12.0 % Eosinophils (%) (Auto) 7.4 H 0.0-7.0 % Basophils (%) (Auto) 0.7 0.0-2.0 % Neutrophils # (Auto) 4.7 1.6-8.6 10 ^3/uL Lymphocytes # (Auto) 2.6 0.4-5.4 10 ^3/uL Monocytes # (Auto) 0.4 0-1.3 10 ^3/uL Eosinophils # (Auto) 0.6 0-0.8 10 ^3/uL Basophils # (Auto) 0.1 0-0.2 10 ^3/uL Nucleated Red Blood Cells 0.1 % Sodium Level 140 136-145 mmol/L Potassium Level 4.4 3.5-5.1 mmol/L Chloride Level 106 98-107 mmol/L Carbon Dioxide Level 27 20-31 mmol/L Anion Gap 7 5-15 Blood Urea Nitrogen 8 L 9-23 mg/dL Creatinine 0.70 0.550-1.02 mg/dL Glomerular Filtration Rate Calc 95 >90 mL/min BUN/Creatinine Ratio 11.4 10.0-20.0 Serum Glucose 97 74-106 mg/dL Calcium Level 9.9 8.7-10.4 mg/dL Urine Color Colorless Yellow Urine Clarity Turbid H Clear Urine pH 5.5 5.0-9.0 Urine Specific [place] 1.008 1.001-1.035 Urine Protein Negative Negative Urine Ketones Negative Negative Urine Blood Negative Negative /uL Urine Nitrite Negative Negative Urine Bilirubin Negative Negative Urine Urobilinogen Normal Negative mg/dL Urine Leukocyte Esterase 3+ Negative /uL Urine RBC 7 0 - 4 /hpf Urine Microscopic WBC 90 H 0-5 /HPF Urine Squamous Epithelial Cells Few <5 /hpf Urine Bacteria Few H None Seen /hpf Urine Glucose 2+ H Normal mg/dL Urine Opiates Screen Neg NEGATIVE Urine Fentanyl Screen Neg NEGATIVE Urine Barbiturates Screen Neg NEGATIVE Urine Phencyclidine Screen Neg NEGATIVE Urine Amphetamines Screen Neg NEGATIVE Urine Benzodiazepines Screen Neg NEGATIVE Urine Cocaine Screen Neg NEGATIVE Urine Cannabinoids Screen Pos NEGATIVE Hemoglobin A1c 5.2 <5.7 % A1C Lactic Acid Level 1.3 0.4-2.0 mmol/L Phosphorus Level 3.7 2.4-5.1 mg/dL Magnesium Level 2.2 1.6-2.6 mg/dL Troponin I High Sensitivity < 3 L </=34 ng/L Triglycerides Level 149 < 150 mg/dL Cholesterol Level 164 < 200 mg/dL LDL Cholesterol 51 < 100 mg/dL HDL Cholesterol 91 H 40-59 mg/dL Vitamin B12 Level 568 211-911 pg/mL Vitamin D 25-Hydroxy 37.6 30.0-100 ng/mL Thyroid Stimulating Hormone (TSH) 0.99 0.55-4.78 uIU/mL Plasma/Serum Blood Alcohol < 3.0 <10 mg/dL POC Glucose 88 70-106 mg/dl Microbiology Date/Time Source Procedure Growth Status 12/25/24 14:54 Blood Blood Culture - Preliminary NO GROWTH AFTER 24 HOURS OF INCUBATION. Resulted Assessment Questionable history of HFrEF Rule out CVA Hypertension Asthma PTSD Depression Alcohol use Plan/Recommendation We will continue with the following plan/recommendations (Dr. Pinto): Case discussed with . Transthoracic echocardiogram reveals an EF of 60% with no severe valve abnormalities and normal RV function. The patient reports a previous history of EF as low as 28%. Unable to confirm this at this time given that this is the patient's first visit to this facility and we have no prior echocardiograms to compare. Patient denies all cardiac symptoms at time of assessment. Patient reports being in the emergency room for stroke-like symptoms. At this time, there is no indication for ischemic workup. Primary care team to rule out CVA. Patient to follow up with her primary microelectronics engineer at [place]. Thank you for allowing us to care for this patient. Please call with any questions or concerns. Critical care time spent: 44 minutes This medical document was created using an electronic medical record system with voice recognition software and computerized dictation system. Although this document has been carefully reviewed, there might still be some phonetic and typographical errors. Occasional wrong-word or ``sound-alike substitutions may have occurred due to the inherent limitations of voice recognition software. These areas are purely typographical due to imperfections of the software programs and do not reflect any compromise in the patient's medical care. Please read the chart carefully and recognize, using context, where these substitutions have occurred. Plan discussed with: Patient NYHA 2 Physical activity limitations: NA Date of Service: Dec 26, 2024 Billing Provider: ANUJ ROMERO Cardiology Common Codes: [id number] INP/OBS CARE (High) Cardiology Consultation Codes: [id number] CONSULT <45MIN ANUJ ROMERO Dec 26, 2024 16:44
[2024-12-26] MEDS: SODIUM CHLORIDE 0.9% 1,000 ML IV SCH (17:48)
[2024-12-26] MEDS: ATORVASTATIN 20 MG TAB PO SCH (21:51)
[2024-12-26] MEDS: MONTELUKAST SODIUM 10 MG TAB PO SCH (22:01)
[2024-12-27] VITALS (14 sets, daily range): BP systolic 124–150; BP diastolic 60–93; PULSE 71–97; RESP 16–20; TEMP 97.8–98.2; O2SAT 92–100
[2024-12-27] MEDS ORDERED: METO25TA93 PO (06:20)
[2024-12-27] MEDS ORDERED: FLUT1INH6 INH (06:20)
[2024-12-27] MEDS ORDERED: TRAZ-228 PO (06:20)
[2024-12-27] MEDS ORDERED: DAPA1TAB4 PO (06:20)
[2024-12-27] MEDS ORDERED: MONT-8 PO (06:20)
[2024-12-27] MEDS ORDERED: OMEP1CAP70 PO (06:20)
[2024-12-27] MEDS ORDERED: TIOTCAP INH (06:20)
[2024-12-27] MEDS ORDERED: VENL-194 PO (06:20)
[2024-12-27] MEDS ORDERED: ROSU10TA64 PO (06:20)
[2024-12-27] MEDS ORDERED: LISI10TA34 PO (06:20)
--- NOTE | 2024-12-27 10:41 | DVH ---
CLINICAL INDICATION: 69 years old, Female; Rule out stroke. Indication for recent CT head was acute loss of consciousness. COMPARISON: CT dated 12/25/2024. TECHNIQUE: Multisequence multiplanar MRI images of the brain were obtained without contrast. FINDINGS: No acute infarct or hemorrhage. No mass or midline shift. Scattered areas of T2/FLAIR hype rintense signal in the periventricular and subcortical white matter are nonspecific, but most likely sequelae of chronic small vessel ischemic disease. Ventricles and sulci are within normal limits. Bas al cisterns are patent. Cerebellum, brainstem, and midline structures are within normal limits. Mild mucosal thickening of the paranasal sinuses. Orbits are grossly unremarkable. IMPRESSION: 1. No evidence of acute intracranial abnormality. 2. Nonacute findings as described above.
--- NOTE | 2024-12-27 19:41 | DVHDSRES ---
Discharge Summary Date of Admission Resident Creating Document: DEANGELO DEAL RESIDENT Dec 25, 2024 at 23:15 Date of Discharge: Dec 27, 2024 Admitting Diagnosis Right sided facial drop Labs/Diagnostic Data: PATIENT: THEODORE SANCHEZ: [id number] UNIT: [id number] : 1955 LOC: [facility] ROOM / BED: 0294T / B AGE / SEX: 69 / F ADM STATUS: ADM IN SERVICE 2315 ORDERING PHYSICIAN: WINNIE KWOK PROCEDURE(s): MBHL - BRAIN HEAD WO CONTRAST REASON: Rule out stroke ORDER NUMBER(s): [id number], ACCESSION NUMBER(s): [id number] CLINICAL INDICATION: 69 years old, Female; Rule out stroke. Indication for recent CT head was acute loss of consciousness. COMPARISON: CT dated 12/25/2024. TECHNIQUE: Multisequence multiplanar MRI images of the brain were obtained without contrast. FINDINGS: No acute infarct or hemorrhage. No mass or midline shift. Scattered areas of T2/FLAIR hyperintense signal in the periventricular and subcortical white matter are nonspecific, but most likely sequelae of chronic small vessel ischemic disease. Ventricles and sulci are within normal limits. Basal cisterns are patent. Cerebellum, brainstem, and midline structures are within normal limits. Mild mucosal thickening of the paranasal sinuses. Orbits are grossly unremarkable. IMPRESSION: 1. No evidence of acute intracranial abnormality. 2. Nonacute findings as described above. ATED BY: SESAR VELEZ DO DICTATED DATE/TIME: 12/27/24 1039 PATIENT: THEODORE SANCHEZT: [id number] UNIT: [id number] : 1955 LOC: OVERFLOW ROOM / BED: [facility] / A AGE / SEX: 69 / F ADM STATUS: ADM IN SERVICE 5 ORDERING PHYSICIAN: WINNIE KWOK PROCEDURE(s): CARCL - CAROTID DUPLX W COLOR DOP REASON: CVA work up ORDER NUMBER(s): [id number], ACCESSION NUMBER(s): [id number] Carotid Duplex Date: 12/26/2024 08:41 AM Clinical History: CVA work up Comparison: None Technique: Duplex Doppler evaluation of the extracranial carotid and vertebral arteries including color Doppler and spectral/pulsed waveform analysis was performed. Findings: RIGHT SIDE: The peak systolic velocities are 66 cm/s in the distal CCA and 40 cm/s in the proximal ICA.The ICA/CCA ratio is 0.6. The external carotid artery is patent with peak systolic velocity of 34 cm/s proximally. There is appropriate antegrade flow in the right vertebral artery. LEFT SIDE: The peak systolic velocities are 54 cm/s in the distal CCA and 81cm/s in the proximal ICA. The ICA/CCA ratio is 1.5. The external carotid artery is patent with peak systolic velocity of 34 cm/s proximally. There is appropriate antegrade flow in the left vertebral artery. IMPRESSION: No hemodynamically significant stenosis noted in the right carotid system. No hemodynamically significant stenosis noted in the left carotid system. Reference: Radiology 2003; 229:[id number] ATED BY: SUNNI HODGES MD DICTATED DATE/TIME: 12/26/24 0954 PATIENT: THEODORE SANCHEZACCT: [id number] UNIT: [id number] : 1955 LOC: ER ROOM / BED: / AGE / SEX: 69 / F ADM STATUS: REG ER SERVICE 1440 ORDERING PHYSICIAN: DIMITRI SCHWARTZ MD PROCEDURE(s): HWOCT - HEAD WITHOUT CONTRAST REASON: aloc ORDER NUMBER(s): [id number], ACCESSION NUMBER(s): [id number] EXAM: CT HEAD WITHOUT CONTRAST; DATE: 12/25/2024 02:51 PM HISTORY: aloc COMPARISON: None TECHNIQUE: Axial images were obtained and reformatted in coronal and sagittal planes. All CT scans at this medical facility are performed using dose modulation techniques as appropriate to a performed exam including the following: Automated exposure control was utilized; adjustment of the MA and/or KV according to patient size; and use of iterative reconstruction technique. CT Dose: CTDI volume is 56.14 mGy. Dose-length product is 994.11 mGy*cm FINDINGS: Supratentorial Region: No evidence for large acute territorial ischemia. No intracranial hemorrhage is noted. Posterior Fossa: No acute abnormality. Brainstem: Unremarkable. Sellar/Suprasellar Region: Unremarkable. Ventricles, Cisterns, Sulci: Age-appropriate. Orbits: Unremarkable. Paranasal Sinuses: Unremarkable. Mastoid Air Cells: Unremarkable. Vasculature: Unremarkable. Bones/Soft Tissues: No acute abnormality. Other: None. IMPRESSION: 1. No acute intracranial process. ATED BY: NUSRAT ANGELES MD DICTATED DATE/TIME: 12/25/24 1646 PATIENT: THEODORE SANCHEZT: [id number] UNIT: [id number] : 1955 LOC: ER ROOM / BED: / AGE / SEX: 69 / F ADM STATUS: REG ER SERVICE 1440 ORDERING PHYSICIAN: DIMITRI SCHWARTZ MD PROCEDURE(s): CXR2 - CHEST TWO VIEWS ROUTINE REASON: aloc ORDER NUMBER(s): [id number], ACCESSION NUMBER(s): [id number] CHEST TWO VIEWS ROUTINE CLINICAL HISTORY: aloc COMPARISON: None TECHNIQUE: Frontal and lateral view of the chest was obtained FINDINGS: Lines and Tubes: None Lungs: Atelectasis or scarring in the left base Pleura: No effusion. No pneumothorax. Cardiomediastinal contours: Unremarkable Bones: No acute osseous abnormality. IMPRESSION: 1. Atelectasis or scarring in the left base no prior studies for comparison. ATED BY: MODESTO RYAN Jr. DO DICTATED DATE/TIME: 12/25/24 1539 Laboratory Results Test 12/26/24 08:07 12/26/24 07:26 12/25/24 14:55 12/25/24 14:34 White Blood Count 8.4 10^3/uL (4.4-10.8) Red Blood Count 4.64 10^6/uL (4.0-5.20) Hemoglobin 14.6 g/dL (12.2-16.2) Hematocrit 45.1 % (36.0-46.0) Mean Corpuscular Volume 97.4 fL (80.0-100.0) Mean Corpuscular Hemoglobin 31.4 pg (28.0-32.0) Mean Corpuscular Hemoglobin Concent 32.3 g/dL (32.0-36.0) Red Cell Distribution Width 13.3 % (11.8-14.3) Platelet Count 313 10^3/uL (140-450) Mean Platelet Volume 7.7 fL (6.9-10.8) Neutrophils (%) (Auto) 55.7 % (37.0-80.0) Lymphocytes (%) (Auto) 31.2 % (10.0-50.0) Monocytes (%) (Auto) 5.0 % (0.0-12.0) Eosinophils (%) (Auto) 7.4 % (0.0-7.0) Basophils (%) (Auto) 0.7 % (0.0-2.0) Neutrophils # (Auto) 4.7 10 ^3/uL (1.6-8.6) Lymphocytes # (Auto) 2.6 10 ^3/uL (0.4-5.4) Monocytes # (Auto) 0.4 10 ^3/uL (0-1.3) Eosinophils # (Auto) 0.6 10 ^3/uL (0-0.8) Basophils # (Auto) 0.1 10 ^3/uL (0-0.2) Nucleated Red Blood Cells 0.1 % Sodium Level 140 mmol/L (136-145) Potassium Level 4.4 mmol/L (3.5-5.1) Chloride Level 106 mmol/L (98-107) Carbon Dioxide Level 27 mmol/L (20-31) Anion Gap 7 (5-15) Blood Urea Nitrogen 8 mg/dL (9-23) Creatinine 0.70 mg/dL (0.550-1.02) Glomerular Filtration Rate Calc 95 mL/min (>90) BUN/Creatinine Ratio 11.4 (10.0-20.0) Serum Glucose 97 mg/dL (74-106) Calcium Level 9.9 mg/dL (8.7-10.4) Urine Color Colorless (Yellow) Urine Clarity Turbid (Clear) Urine pH 5.5 (5.0-9.0) Urine Specific [place] 1.008 (1.001-1.035) Urine Protein Negative (Negative) Urine Ketones Negative (Negative) Urine Blood Negative /uL (Negative) Urine Nitrite Negative (Negative) Urine Bilirubin Negative (Negative) Urine Urobilinogen Normal mg/dL (Negative) Urine Leukocyte Esterase 3+ /uL (Negative) Urine RBC 7 /hpf (0 - 4) Urine Microscopic WBC 90 /HPF (0-5) Urine Squamous Epithelial Cells Few /hpf (<5) Urine Bacteria Few /hpf (None Seen) Urine Glucose 2+ mg/dL (Normal) Urine Opiates Screen Neg (NEGATIVE) Urine Fentanyl Screen Neg (NEGATIVE) Urine Barbiturates Screen Neg (NEGATIVE) Urine Phencyclidine Screen Neg (NEGATIVE) Urine Amphetamines Screen Neg (NEGATIVE) Urine Benzodiazepines Screen Neg (NEGATIVE) Urine Cocaine Screen Neg (NEGATIVE) Urine Cannabinoids Screen Pos (NEGATIVE) Hemoglobin A1c 5.2 % A1C (<5.7) Lactic Acid Level 1.3 mmol/L (0.4-2.0) Phosphorus Level 3.7 mg/dL (2.4-5.1) Magnesium Level 2.2 mg/dL (1.6-2.6) Troponin I High Sensitivity < 3 ng/L (</=34) Triglycerides Level 149 mg/dL (< 150) Cholesterol Level 164 mg/dL (< 200) LDL Cholesterol 51 mg/dL (< 100) HDL Cholesterol 91 mg/dL (40-59) Vitamin B12 Level 568 pg/mL (211-911) Vitamin D 25-Hydroxy 37.6 ng/mL (30.0-100) Thyroid Stimulating Hormone (TSH) 0.99 uIU/mL (0.55-4.78) Plasma/Serum Blood Alcohol < 3.0 mg/dL (<10) POC Glucose 88 mg/dl (70-106) Other Laboratory Tests 12/26/24 08:07 Brief Hx & Hospital Course: History of Present Illness Theodore Sanchez who is a 69-year-old female patient who presents to the ED brought by daughter due to episode of dementia, lightheadedness, right side facial drooping and slurred speech which occurred while driving from her house to the daughter's house. Review of systems could not be obtained during episode due to her clinical status (she had amnesia). Past medical history: Prediabetes, history of congestive heart failure (per patient she has left ventricular ejection fraction of 28%) due to non affiliated arrhythmia she was planning to go to her medical billing coder and [place] (pending for this week). Previous history of diverticulitis Surgical history: Denies Family history: Father had heart disease, grandmother had colon cancer, and mother had fallopian tube cancer Social history: Lives in [place]), was visiting daughter in [place]. Denies current tobacco, alcohol and other drug abuse (she does drink one glass of wine/Sabi everyday (never more than two. Does consume CBD to go to sleep Allergies: Hay fever Home medication: Spiriva, Breyo, lisinopril Brief Hospital course Patient was admitted for further workup to rule out the underlying cause. CT head showed no acute intracranial process. Carotid doppler showed no hemodynamically significant stenosis noted in both left and right carotid system and MRI showed no evidence of acute intracranial abnormality. On MMSE she scored more than 25/30. Patient later mentioned that she had an echo done elsewhere that showed her EF was 28% had a Holter monitor that revealed arrhythmias ( could not ascertain this from her medical records on her phone). Concerned that patient might hve new onset CHF, we consulted Cardiology for ischemic workup. Her echo here showed EF of 60%. Upon cardiology evaluation, there was no indication for ischemic workup at this time. Patient later showed me her ALISSA that was done a few months ago and it showed an EF of 45% Patient is scheduled to follow up with her medical billing coder at [place] on Monday. Overall the patient's workup has been grossly negative she probably presented with a TIA. We advised to follow up with the physicians at [facility] and she is welcome to the ED if she does not fell well. Review of system Constitutional: Denies fever no chills no feeling of malaise HEENT: Denies headache, ear pain, ear discharges, conjunctivitis, nasal discharge throat pain Cardiovascular: Denies chest pain, palpitation, orthopnea, PND, or pedal edema Respiratory: Denies shortness of breath, cough cough, sputum production, hemoptysis, GI: Denies abdominal pain, nausea, vomiting, diarrhea, hematemesis, hematochezia, : Denies frequency, urgency, hematuria, Endocrine: Denies unintentional weight gain or weight loss, feeling of hot flashes, [place]: Denies easy bruising, bleeding disorders, epistaxis Musculoskeletal: Denies joint pains, muscle aches Psych: No evidence of depression, eleni, suicidal ideation Examination General Appearance: Alert, Oriented X3, Cooperative, No acute distress HEENT: Atraumatic, PERRLA, EOMI, Mucous membrane moist/pink Respiratory: Clear to auscultation, Normal air movement Cardiovascular: Regular rate, Normal S1, Normal S2, No murmurs, no chest wall tenderness Abdominal: NO distention, no tenderness, bowel sounds present, no scars noted Extremities: No clubbing, No cyanosis, No edema, Normal pulses, No tenderness/swelling Skin: No rashes, No breakdown, No significant lesion Neuro: Normal gait, Normal speech, Strength at 5/5 X4 ext, Normal tone, Sensation intact, Cranial nerves 3-12 NL, Reflexes 2+ Psych/Mental Status: Mental status NL, Mood NL Diagnoses TIA Early Dementia ?? New onset Chf, CHF according to patient Non-Affiliated arrhythmia Asthma Asymptomatic UTI besity grade II, BMI: 36.8 Case and discharge plan discussed + Dr. Abraham Consults/Reason for consult Questionable New onset CHF Condition at Discharge: Good Final Diagnosis/Problems List TIA Early Dementia ?? New onset Chf Non-Affiliated arrhythmia Asthma asymptomatic pyuria besity grade II, BMI: 36.8 Discharge Disposition: Home Discharge Instruct/Medications Diet: Regular Activity: Light activity Follow Up/Referral: 7 days Medications: Continue home medications Discharge Statement: "Patient was advised to return to the ER or call 911 if any headaches, dizziness, shortness of breath, chest pain, abdominal pain, bleeding, fevers, or worsening of medical condition. Patient was counseled about treatment plan, medications, possible side effects, patientverbalized understanding. All questions were answered to the best of my ability. This discharge took greater then 30 minutes in planning, reviewing documentation, counseling the patient, and discussing with other team members." ASSESSMENT ASSESSMENT Assessment TIA Early Dementia ?? New onset Chf Non-Affiliated arrhythmia Asthma asymptomatic pyuria besity grade II, BMI: 36.8 Date of Service: Dec 27, 2024 Billing Provider: BEL ABRAHAM MD Common Visit Codes: 42598-GTV/OBS DISCH DAY >30min DEANGELO DEAL Dec 27, 2024 19:41 BEL ABRAHAM MD Dec 27, 2024 22:13
== END 2024-12-27 20:10 | disposition home or self-care (01) | DRG 69 ==
LOC: ER 14:29 → OVERFLOW 23:15 → TELE-WESTW 12-26 23:52
PROVIDERS: ADMIT Student in an Organized Health Care Education/Training Program; ATTEND Student in an Organized Health Care Education/Training Program
DX: G45.9 Transient cerebral ischemic attack, unspecified (principal); I50.22 Chronic systolic (congestive) heart failure; N39.0 Urinary tract infection, site not specified; I11.0 Hypertensive heart disease with heart failure; E66.812 Obesity, class 2; J45.909 Unspecified asthma, uncomplicated; F43.10 Post-traumatic stress disorder, unspecified; I95.9 Hypotension, unspecified; F32.A Depression, unspecified; F10.90 Alcohol use, unspecified, uncomplicated; Z82.49 Family history of ischemic heart disease and other diseases of the circulatory system; Z80.0 Family history of malignant neoplasm of digestive organs; Z68.36 Body mass index [BMI] 36.0-36.9, adult; Y90.9 Presence of alcohol in blood, level not specified
CPT/HCPCS: 36415; 70450; 70551; 71046; 80048; 80061; 80307; 80320; 81001; 82306; 82607; 82962; 83036; 83605; 83735; 84100; 84443; 84484; 85025; 87040; 93005; 93306; 93886; 94640; 96360; 99291; G0378